=== PATIENT | female | born 1935 | race Caucasian/White ===

== ENCOUNTER → 2017-08-11 | Outpatient (CLI) | payer MEDICARE, OTHER | END | disposition home or self-care (01) | LOC: WOUND 10:00 | PROVIDERS: ATTEND Internal Medicine Infectious Disease | DX: I87.331 Chronic venous hypertension (idiopathic) with ulcer and inflammation of right lower extremity (principal); L97.212 Non-pressure chronic ulcer of right calf with fat layer exposed; I48.91 Unspecified atrial fibrillation; I73.9 Peripheral vascular disease, unspecified; Z86.718 Personal history of other venous thrombosis and embolism; Z86.711 Personal history of pulmonary embolism; Z95.0 Presence of cardiac pacemaker | CPT/HCPCS: 11042; G0463; WOU0463 ==

== ENCOUNTER → 2017-08-21 | Outpatient (CLI) | payer MEDICARE, OTHER | END | disposition home or self-care (01) | LOC: WOUND 13:13 | PROVIDERS: ATTEND Family Medicine | DX: I87.331 Chronic venous hypertension (idiopathic) with ulcer and inflammation of right lower extremity (principal); L97.212 Non-pressure chronic ulcer of right calf with fat layer exposed; I73.9 Peripheral vascular disease, unspecified; I48.91 Unspecified atrial fibrillation; Z86.718 Personal history of other venous thrombosis and embolism; Z86.711 Personal history of pulmonary embolism; Z95.1 Presence of aortocoronary bypass graft; Z95.0 Presence of cardiac pacemaker; Z90.710 Acquired absence of both cervix and uterus | CPT/HCPCS: 29581 ==

== ENCOUNTER → 2017-08-25 | Outpatient (CLI) | payer MEDICARE, OTHER | END | disposition home or self-care (01) | LOC: WOUND 10:41 | PROVIDERS: ATTEND Nurse Practitioner Family | DX: I87.311 Chronic venous hypertension (idiopathic) with ulcer of right lower extremity (principal); L97.212 Non-pressure chronic ulcer of right calf with fat layer exposed; L57.0 Actinic keratosis; I73.9 Peripheral vascular disease, unspecified; I48.91 Unspecified atrial fibrillation; Z86.718 Personal history of other venous thrombosis and embolism; Z86.711 Personal history of pulmonary embolism; Z95.0 Presence of cardiac pacemaker; Z90.710 Acquired absence of both cervix and uterus; Z95.1 Presence of aortocoronary bypass graft | CPT/HCPCS: 97597 ==

== ENCOUNTER → 2017-09-03 | Outpatient (CLI) | payer MEDICARE, OTHER | END | disposition home or self-care (01) | LOC: WOUND 10:14 | PROVIDERS: ATTEND Podiatrist Foot & Ankle Surgery | DX: I87.331 Chronic venous hypertension (idiopathic) with ulcer and inflammation of right lower extremity (principal); L97.212 Non-pressure chronic ulcer of right calf with fat layer exposed; I48.91 Unspecified atrial fibrillation; I73.9 Peripheral vascular disease, unspecified; Z95.1 Presence of aortocoronary bypass graft; Z95.2 Presence of prosthetic heart valve; Z90.710 Acquired absence of both cervix and uterus; Z86.718 Personal history of other venous thrombosis and embolism; Z86.711 Personal history of pulmonary embolism; Z95.0 Presence of cardiac pacemaker | CPT/HCPCS: 11042 ==

== ENCOUNTER → 2017-09-10 | Outpatient (CLI) | payer MEDICARE, OTHER | END | disposition home or self-care (01) | LOC: WOUND 10:42 | PROVIDERS: ATTEND Podiatrist Foot & Ankle Surgery | DX: I87.331 Chronic venous hypertension (idiopathic) with ulcer and inflammation of right lower extremity (principal); L97.212 Non-pressure chronic ulcer of right calf with fat layer exposed; I48.91 Unspecified atrial fibrillation; I73.9 Peripheral vascular disease, unspecified; Z90.710 Acquired absence of both cervix and uterus; Z86.718 Personal history of other venous thrombosis and embolism; Z86.711 Personal history of pulmonary embolism; Z95.1 Presence of aortocoronary bypass graft; Z95.0 Presence of cardiac pacemaker; Z95.2 Presence of prosthetic heart valve | CPT/HCPCS: 15271; Q4159 ==

== ENCOUNTER → 2017-09-17 | Outpatient (CLI) | payer MEDICARE, OTHER | END | disposition home or self-care (01) | LOC: WOUND 09:58 | PROVIDERS: ATTEND Podiatrist Foot & Ankle Surgery | DX: I87.331 Chronic venous hypertension (idiopathic) with ulcer and inflammation of right lower extremity (principal); L97.212 Non-pressure chronic ulcer of right calf with fat layer exposed; I73.9 Peripheral vascular disease, unspecified; I48.91 Unspecified atrial fibrillation; Z86.718 Personal history of other venous thrombosis and embolism; Z86.711 Personal history of pulmonary embolism; Z95.0 Presence of cardiac pacemaker; Z95.1 Presence of aortocoronary bypass graft; Z95.2 Presence of prosthetic heart valve; Z90.710 Acquired absence of both cervix and uterus | CPT/HCPCS: 15271; Q4133 ==

== ENCOUNTER → 2017-09-24 | Outpatient (CLI) | payer MEDICARE, OTHER | END | disposition home or self-care (01) | LOC: WOUND 10:00 | PROVIDERS: ATTEND Podiatrist Foot & Ankle Surgery | DX: I87.331 Chronic venous hypertension (idiopathic) with ulcer and inflammation of right lower extremity (principal); L97.212 Non-pressure chronic ulcer of right calf with fat layer exposed; I48.91 Unspecified atrial fibrillation; I73.9 Peripheral vascular disease, unspecified; Z86.718 Personal history of other venous thrombosis and embolism; Z86.711 Personal history of pulmonary embolism; Z95.1 Presence of aortocoronary bypass graft; Z95.0 Presence of cardiac pacemaker; Z95.2 Presence of prosthetic heart valve; Z90.710 Acquired absence of both cervix and uterus | CPT/HCPCS: 15271; Q4159 ==

== ENCOUNTER → 2017-10-01 | Outpatient (CLI) | payer MEDICARE, OTHER | END | disposition home or self-care (01) | LOC: WOUND 10:30 | PROVIDERS: ATTEND Podiatrist Foot & Ankle Surgery | DX: I87.331 Chronic venous hypertension (idiopathic) with ulcer and inflammation of right lower extremity (principal); L97.212 Non-pressure chronic ulcer of right calf with fat layer exposed; I48.91 Unspecified atrial fibrillation; I73.9 Peripheral vascular disease, unspecified; Z86.718 Personal history of other venous thrombosis and embolism; Z86.711 Personal history of pulmonary embolism; Z95.1 Presence of aortocoronary bypass graft; Z95.0 Presence of cardiac pacemaker; Z95.2 Presence of prosthetic heart valve; Z90.710 Acquired absence of both cervix and uterus | CPT/HCPCS: 15271; Q4159 ==

== ENCOUNTER → 2017-10-08 | Outpatient (CLI) | payer MEDICARE, OTHER | END | disposition home or self-care (01) | LOC: WOUND 09:48 | PROVIDERS: ATTEND Podiatrist Foot & Ankle Surgery | DX: I87.331 Chronic venous hypertension (idiopathic) with ulcer and inflammation of right lower extremity (principal); L97.212 Non-pressure chronic ulcer of right calf with fat layer exposed; I48.91 Unspecified atrial fibrillation; I73.9 Peripheral vascular disease, unspecified; Z86.718 Personal history of other venous thrombosis and embolism; Z86.711 Personal history of pulmonary embolism; Z95.1 Presence of aortocoronary bypass graft; Z95.0 Presence of cardiac pacemaker; Z95.2 Presence of prosthetic heart valve; Z90.710 Acquired absence of both cervix and uterus | CPT/HCPCS: 15271; Q4159 ==

== ENCOUNTER → 2017-10-15 | Outpatient (CLI) | payer MEDICARE, OTHER | END | disposition home or self-care (01) | LOC: WOUND 10:20 | PROVIDERS: ATTEND Podiatrist Foot & Ankle Surgery | DX: I87.331 Chronic venous hypertension (idiopathic) with ulcer and inflammation of right lower extremity (principal); L97.212 Non-pressure chronic ulcer of right calf with fat layer exposed; I48.91 Unspecified atrial fibrillation; I73.9 Peripheral vascular disease, unspecified; Z86.718 Personal history of other venous thrombosis and embolism; Z86.711 Personal history of pulmonary embolism; Z95.1 Presence of aortocoronary bypass graft; Z95.0 Presence of cardiac pacemaker; Z95.2 Presence of prosthetic heart valve; Z90.710 Acquired absence of both cervix and uterus | CPT/HCPCS: 15271; Q4159 ==

== ENCOUNTER → 2017-10-22 | Outpatient (CLI) | payer MEDICARE, OTHER | END | disposition home or self-care (01) | LOC: WOUND 10:17 | PROVIDERS: ATTEND Podiatrist Foot & Ankle Surgery | DX: I87.331 Chronic venous hypertension (idiopathic) with ulcer and inflammation of right lower extremity (principal); L97.212 Non-pressure chronic ulcer of right calf with fat layer exposed; I73.9 Peripheral vascular disease, unspecified; I48.91 Unspecified atrial fibrillation; Z86.718 Personal history of other venous thrombosis and embolism; Z86.711 Personal history of pulmonary embolism; Z95.1 Presence of aortocoronary bypass graft; Z95.0 Presence of cardiac pacemaker; Z95.2 Presence of prosthetic heart valve; Z90.710 Acquired absence of both cervix and uterus | CPT/HCPCS: 15271; Q4159 ==

== ENCOUNTER → 2017-10-29 | Outpatient (CLI) | payer MEDICARE, OTHER | END | disposition home or self-care (01) | LOC: WOUND 10:15 | PROVIDERS: ATTEND Podiatrist Foot & Ankle Surgery | DX: I87.331 Chronic venous hypertension (idiopathic) with ulcer and inflammation of right lower extremity (principal); L97.212 Non-pressure chronic ulcer of right calf with fat layer exposed; I73.9 Peripheral vascular disease, unspecified; I48.91 Unspecified atrial fibrillation; Z86.718 Personal history of other venous thrombosis and embolism; Z86.711 Personal history of pulmonary embolism; Z95.1 Presence of aortocoronary bypass graft; Z95.0 Presence of cardiac pacemaker; Z95.2 Presence of prosthetic heart valve; Z90.710 Acquired absence of both cervix and uterus | CPT/HCPCS: 15271; Q4133 ==

== ENCOUNTER → 2017-11-05 | Outpatient (CLI) | payer MEDICARE, OTHER | END | disposition home or self-care (01) | LOC: WOUND 09:36 | PROVIDERS: ATTEND Podiatrist Foot & Ankle Surgery | DX: I87.331 Chronic venous hypertension (idiopathic) with ulcer and inflammation of right lower extremity (principal); L97.212 Non-pressure chronic ulcer of right calf with fat layer exposed; I48.91 Unspecified atrial fibrillation; I73.9 Peripheral vascular disease, unspecified; Z90.710 Acquired absence of both cervix and uterus; Z86.718 Personal history of other venous thrombosis and embolism; Z86.711 Personal history of pulmonary embolism; Z95.1 Presence of aortocoronary bypass graft; Z95.0 Presence of cardiac pacemaker; Z95.2 Presence of prosthetic heart valve | CPT/HCPCS: 15271; Q4133 ==

== ENCOUNTER → 2017-11-12 | Outpatient (CLI) | payer MEDICARE, OTHER | END | disposition home or self-care (01) | LOC: WOUND 10:16 | PROVIDERS: ATTEND Podiatrist Foot & Ankle Surgery | DX: I87.331 Chronic venous hypertension (idiopathic) with ulcer and inflammation of right lower extremity (principal); L97.212 Non-pressure chronic ulcer of right calf with fat layer exposed; I48.91 Unspecified atrial fibrillation; I73.9 Peripheral vascular disease, unspecified; Z86.718 Personal history of other venous thrombosis and embolism; Z86.711 Personal history of pulmonary embolism; Z95.0 Presence of cardiac pacemaker; Z95.2 Presence of prosthetic heart valve; Z90.710 Acquired absence of both cervix and uterus | CPT/HCPCS: 15271; Q4101 ==

== ENCOUNTER → 2017-11-19 | Outpatient (CLI) | payer MEDICARE, OTHER | END | disposition home or self-care (01) | LOC: WOUND 10:09 | PROVIDERS: ATTEND Podiatrist Foot & Ankle Surgery | DX: I87.331 Chronic venous hypertension (idiopathic) with ulcer and inflammation of right lower extremity (principal); L97.812 Non-pressure chronic ulcer of other part of right lower leg with fat layer exposed; I48.91 Unspecified atrial fibrillation; I73.89 Other specified peripheral vascular diseases; Z90.711 Acquired absence of uterus with remaining cervical stump; Z86.711 Personal history of pulmonary embolism; Z86.718 Personal history of other venous thrombosis and embolism; Z90.710 Acquired absence of both cervix and uterus; Z95.0 Presence of cardiac pacemaker; Z95.1 Presence of aortocoronary bypass graft; Z95.2 Presence of prosthetic heart valve | CPT/HCPCS: 11042; 11100; 97607 ==

== ENCOUNTER → 2017-11-23 | Outpatient (CLI) | payer MEDICARE, OTHER | END | disposition home or self-care (01) | LOC: WOUND 12:59 | PROVIDERS: ATTEND Internal Medicine | DX: I87.333 Chronic venous hypertension (idiopathic) with ulcer and inflammation of bilateral lower extremity (principal); L97.212 Non-pressure chronic ulcer of right calf with fat layer exposed; L97.821 Non-pressure chronic ulcer of other part of left lower leg limited to breakdown of skin; I48.91 Unspecified atrial fibrillation; E11.51 Type 2 diabetes mellitus with diabetic peripheral angiopathy without gangrene; Z86.718 Personal history of other venous thrombosis and embolism; Z86.711 Personal history of pulmonary embolism; Z95.0 Presence of cardiac pacemaker; Z90.710 Acquired absence of both cervix and uterus; Z95.1 Presence of aortocoronary bypass graft | CPT/HCPCS: 97607 ==

== ENCOUNTER → 2017-11-26 | Outpatient (CLI) | payer MEDICARE, OTHER | END | disposition home or self-care (01) | LOC: WOUND 10:12 | PROVIDERS: ATTEND Podiatrist Foot & Ankle Surgery | DX: I87.331 Chronic venous hypertension (idiopathic) with ulcer and inflammation of right lower extremity (principal); L97.212 Non-pressure chronic ulcer of right calf with fat layer exposed; I48.91 Unspecified atrial fibrillation; I73.9 Peripheral vascular disease, unspecified; Z86.718 Personal history of other venous thrombosis and embolism; Z86.711 Personal history of pulmonary embolism; Z95.0 Presence of cardiac pacemaker; Z95.2 Presence of prosthetic heart valve; Z95.1 Presence of aortocoronary bypass graft; Z90.710 Acquired absence of both cervix and uterus | CPT/HCPCS: 11042 ==

== ENCOUNTER → 2017-12-03 | Outpatient (CLI) | payer MEDICARE, OTHER | END | disposition home or self-care (01) | LOC: WOUND 09:52 | PROVIDERS: ATTEND Podiatrist Foot & Ankle Surgery | DX: I87.331 Chronic venous hypertension (idiopathic) with ulcer and inflammation of right lower extremity (principal); L97.212 Non-pressure chronic ulcer of right calf with fat layer exposed; I48.91 Unspecified atrial fibrillation; I73.89 Other specified peripheral vascular diseases; Z95.1 Presence of aortocoronary bypass graft; Z90.710 Acquired absence of both cervix and uterus; Z86.711 Personal history of pulmonary embolism; Z95.0 Presence of cardiac pacemaker; Z95.2 Presence of prosthetic heart valve; Z86.718 Personal history of other venous thrombosis and embolism | CPT/HCPCS: 11042; 87070; 87077; 87186; 87205 ==

== ENCOUNTER → 2017-12-10 | Outpatient (CLI) | payer MEDICARE, OTHER | END | disposition home or self-care (01) | LOC: WOUND 10:34 | PROVIDERS: ATTEND Podiatrist Foot & Ankle Surgery | DX: I87.311 Chronic venous hypertension (idiopathic) with ulcer of right lower extremity (principal); L97.212 Non-pressure chronic ulcer of right calf with fat layer exposed; I73.89 Other specified peripheral vascular diseases; I48.91 Unspecified atrial fibrillation; Z90.710 Acquired absence of both cervix and uterus; Z95.1 Presence of aortocoronary bypass graft; Z95.0 Presence of cardiac pacemaker; Z95.2 Presence of prosthetic heart valve; Z86.711 Personal history of pulmonary embolism | CPT/HCPCS: 11042; 87070; 87077; 87186; 87205 ==

== ENCOUNTER → 2017-12-17 | Outpatient (CLI) | payer MEDICARE, OTHER | END | disposition home or self-care (01) | LOC: WOUND 10:01 | PROVIDERS: ATTEND Podiatrist Foot & Ankle Surgery | DX: I87.331 Chronic venous hypertension (idiopathic) with ulcer and inflammation of right lower extremity (principal); L97.212 Non-pressure chronic ulcer of right calf with fat layer exposed; I48.91 Unspecified atrial fibrillation; Z95.0 Presence of cardiac pacemaker; Z95.1 Presence of aortocoronary bypass graft; Z95.2 Presence of prosthetic heart valve; Z90.710 Acquired absence of both cervix and uterus; Z86.711 Personal history of pulmonary embolism; Z86.718 Personal history of other venous thrombosis and embolism | CPT/HCPCS: 11043 ==

== ENCOUNTER → 2017-12-24 | Outpatient (CLI) | payer MEDICARE, OTHER | END | disposition home or self-care (01) | LOC: WOUND 10:15 | PROVIDERS: ATTEND Podiatrist Foot & Ankle Surgery | DX: I87.331 Chronic venous hypertension (idiopathic) with ulcer and inflammation of right lower extremity (principal); L97.212 Non-pressure chronic ulcer of right calf with fat layer exposed; I48.91 Unspecified atrial fibrillation; I73.9 Peripheral vascular disease, unspecified; Z86.711 Personal history of pulmonary embolism; Z86.718 Personal history of other venous thrombosis and embolism; Z90.710 Acquired absence of both cervix and uterus; Z95.1 Presence of aortocoronary bypass graft | CPT/HCPCS: 11042 ==

== ENCOUNTER → 2017-12-31 | Outpatient (CLI) | payer MEDICARE, OTHER | END | disposition home or self-care (01) | LOC: WOUND 09:57 | PROVIDERS: ATTEND Podiatrist Foot & Ankle Surgery | DX: I87.311 Chronic venous hypertension (idiopathic) with ulcer of right lower extremity (principal); L97.212 Non-pressure chronic ulcer of right calf with fat layer exposed; I73.9 Peripheral vascular disease, unspecified; I48.91 Unspecified atrial fibrillation; Z95.1 Presence of aortocoronary bypass graft; Z90.49 Acquired absence of other specified parts of digestive tract; Z86.718 Personal history of other venous thrombosis and embolism; Z86.711 Personal history of pulmonary embolism | CPT/HCPCS: 11042 ==

== ENCOUNTER → 2018-01-07 | Outpatient (CLI) | payer MEDICARE, OTHER | END | disposition home or self-care (01) | LOC: WOUND 10:03 | PROVIDERS: ATTEND Podiatrist Foot & Ankle Surgery | DX: I87.331 Chronic venous hypertension (idiopathic) with ulcer and inflammation of right lower extremity (principal); E11.622 Type 2 diabetes mellitus with other skin ulcer; L97.212 Non-pressure chronic ulcer of right calf with fat layer exposed; E11.51 Type 2 diabetes mellitus with diabetic peripheral angiopathy without gangrene; I48.91 Unspecified atrial fibrillation; Z86.718 Personal history of other venous thrombosis and embolism; Z86.711 Personal history of pulmonary embolism; Z95.0 Presence of cardiac pacemaker; Z90.49 Acquired absence of other specified parts of digestive tract; Z95.1 Presence of aortocoronary bypass graft; Z90.710 Acquired absence of both cervix and uterus; Z95.2 Presence of prosthetic heart valve | CPT/HCPCS: 15271; Q4132 ==

== ENCOUNTER → 2018-01-14 | Outpatient (CLI) | payer MEDICARE, OTHER | END | disposition home or self-care (01) | LOC: WOUND 10:00 | PROVIDERS: ATTEND Podiatrist Foot & Ankle Surgery | DX: I87.331 Chronic venous hypertension (idiopathic) with ulcer and inflammation of right lower extremity (principal); E11.622 Type 2 diabetes mellitus with other skin ulcer; L97.212 Non-pressure chronic ulcer of right calf with fat layer exposed; E11.51 Type 2 diabetes mellitus with diabetic peripheral angiopathy without gangrene; I48.91 Unspecified atrial fibrillation; Z86.718 Personal history of other venous thrombosis and embolism; Z86.711 Personal history of pulmonary embolism; Z95.0 Presence of cardiac pacemaker; Z90.49 Acquired absence of other specified parts of digestive tract; Z95.1 Presence of aortocoronary bypass graft; Z90.710 Acquired absence of both cervix and uterus; Z95.2 Presence of prosthetic heart valve | CPT/HCPCS: 15271; Q4132 ==

== ENCOUNTER → 2018-01-21 | Outpatient (CLI) | payer MEDICARE, OTHER | END | disposition home or self-care (01) | LOC: WOUND 10:19 | PROVIDERS: ATTEND Podiatrist Foot & Ankle Surgery | DX: E11.622 Type 2 diabetes mellitus with other skin ulcer (principal); I87.331 Chronic venous hypertension (idiopathic) with ulcer and inflammation of right lower extremity; L97.212 Non-pressure chronic ulcer of right calf with fat layer exposed; E11.51 Type 2 diabetes mellitus with diabetic peripheral angiopathy without gangrene; I48.91 Unspecified atrial fibrillation; I25.10 Atherosclerotic heart disease of native coronary artery without angina pectoris; Z90.710 Acquired absence of both cervix and uterus; Z90.49 Acquired absence of other specified parts of digestive tract; Z95.2 Presence of prosthetic heart valve; Z95.1 Presence of aortocoronary bypass graft; Z95.0 Presence of cardiac pacemaker; Z86.73 Personal history of transient ischemic attack (TIA), and cerebral infarction without residual deficits; Z86.711 Personal history of pulmonary embolism | CPT/HCPCS: 15271; Q4132 ==

== ENCOUNTER → 2018-01-28 | Outpatient (CLI) | payer MEDICARE, OTHER | END | disposition home or self-care (01) | LOC: WOUND 10:22 | PROVIDERS: ATTEND Podiatrist Foot & Ankle Surgery | DX: E11.622 Type 2 diabetes mellitus with other skin ulcer (principal); I87.331 Chronic venous hypertension (idiopathic) with ulcer and inflammation of right lower extremity; L97.212 Non-pressure chronic ulcer of right calf with fat layer exposed; E11.51 Type 2 diabetes mellitus with diabetic peripheral angiopathy without gangrene; I48.91 Unspecified atrial fibrillation; I25.10 Atherosclerotic heart disease of native coronary artery without angina pectoris; Z90.710 Acquired absence of both cervix and uterus; Z90.49 Acquired absence of other specified parts of digestive tract; Z95.2 Presence of prosthetic heart valve; Z95.1 Presence of aortocoronary bypass graft; Z95.0 Presence of cardiac pacemaker; Z86.73 Personal history of transient ischemic attack (TIA), and cerebral infarction without residual deficits; Z86.711 Personal history of pulmonary embolism; Z86.718 Personal history of other venous thrombosis and embolism | CPT/HCPCS: 15271; Q4132 ==

== ENCOUNTER → 2018-02-04 | Outpatient (CLI) | payer MEDICARE, OTHER | END | disposition home or self-care (01) | LOC: WOUND 10:42 | PROVIDERS: ATTEND Podiatrist Foot & Ankle Surgery | DX: I87.331 Chronic venous hypertension (idiopathic) with ulcer and inflammation of right lower extremity (principal); E11.622 Type 2 diabetes mellitus with other skin ulcer; L97.212 Non-pressure chronic ulcer of right calf with fat layer exposed; E11.51 Type 2 diabetes mellitus with diabetic peripheral angiopathy without gangrene; I48.91 Unspecified atrial fibrillation; I25.10 Atherosclerotic heart disease of native coronary artery without angina pectoris; Z86.718 Personal history of other venous thrombosis and embolism; Z86.711 Personal history of pulmonary embolism; Z95.0 Presence of cardiac pacemaker; Z90.49 Acquired absence of other specified parts of digestive tract; Z95.1 Presence of aortocoronary bypass graft; Z90.710 Acquired absence of both cervix and uterus; Z95.2 Presence of prosthetic heart valve; Z86.73 Personal history of transient ischemic attack (TIA), and cerebral infarction without residual deficits | CPT/HCPCS: 15271; Q4133 ==

== ENCOUNTER → 2018-02-04 | Outpatient (CLI) | payer MEDICARE, OTHER | END | disposition home or self-care (01) | LOC: CARD 08:53 | PROVIDERS: ATTEND Audiologist | DX: Z02.9 Encounter for administrative examinations, unspecified (principal) ==

== ENCOUNTER → 2018-02-11 | Outpatient (CLI) | payer MEDICARE, OTHER | END | disposition home or self-care (01) | LOC: WOUND 09:58 | PROVIDERS: ATTEND Podiatrist Foot & Ankle Surgery | DX: E11.622 Type 2 diabetes mellitus with other skin ulcer (principal); I87.331 Chronic venous hypertension (idiopathic) with ulcer and inflammation of right lower extremity; L97.212 Non-pressure chronic ulcer of right calf with fat layer exposed; E11.51 Type 2 diabetes mellitus with diabetic peripheral angiopathy without gangrene; I48.91 Unspecified atrial fibrillation; I25.10 Atherosclerotic heart disease of native coronary artery without angina pectoris; Z95.0 Presence of cardiac pacemaker; Z86.711 Personal history of pulmonary embolism; Z86.718 Personal history of other venous thrombosis and embolism; Z90.710 Acquired absence of both cervix and uterus; Z90.49 Acquired absence of other specified parts of digestive tract; Z86.73 Personal history of transient ischemic attack (TIA), and cerebral infarction without residual deficits | CPT/HCPCS: 15271; Q4133 ==

== ENCOUNTER → 2018-02-18 | Outpatient (CLI) | payer MEDICARE, OTHER | END | disposition home or self-care (01) | LOC: WOUND 10:00 | PROVIDERS: ATTEND Podiatrist Foot & Ankle Surgery | DX: E11.622 Type 2 diabetes mellitus with other skin ulcer (principal); I87.311 Chronic venous hypertension (idiopathic) with ulcer of right lower extremity; L97.212 Non-pressure chronic ulcer of right calf with fat layer exposed; E11.51 Type 2 diabetes mellitus with diabetic peripheral angiopathy without gangrene; I48.91 Unspecified atrial fibrillation; I25.10 Atherosclerotic heart disease of native coronary artery without angina pectoris; Z86.718 Personal history of other venous thrombosis and embolism; Z86.711 Personal history of pulmonary embolism; Z90.710 Acquired absence of both cervix and uterus; Z90.49 Acquired absence of other specified parts of digestive tract; Z86.73 Personal history of transient ischemic attack (TIA), and cerebral infarction without residual deficits | CPT/HCPCS: 15271; Q4133 ==

== ENCOUNTER → 2018-02-25 | Outpatient (CLI) | payer MEDICARE, OTHER | END | disposition home or self-care (01) | LOC: WOUND 10:48 | PROVIDERS: ATTEND Podiatrist Foot & Ankle Surgery | DX: E11.622 Type 2 diabetes mellitus with other skin ulcer (principal); I87.331 Chronic venous hypertension (idiopathic) with ulcer and inflammation of right lower extremity; L97.212 Non-pressure chronic ulcer of right calf with fat layer exposed; E11.51 Type 2 diabetes mellitus with diabetic peripheral angiopathy without gangrene; I48.91 Unspecified atrial fibrillation; I25.10 Atherosclerotic heart disease of native coronary artery without angina pectoris; Z90.710 Acquired absence of both cervix and uterus; Z90.49 Acquired absence of other specified parts of digestive tract; Z86.718 Personal history of other venous thrombosis and embolism; Z86.711 Personal history of pulmonary embolism | CPT/HCPCS: 15271; Q4132 ==

== ENCOUNTER → 2018-03-04 | Outpatient (CLI) | payer MEDICARE, OTHER | END | disposition home or self-care (01) | LOC: WOUND 09:55 | PROVIDERS: ATTEND Podiatrist Foot & Ankle Surgery | DX: E11.622 Type 2 diabetes mellitus with other skin ulcer (principal); I87.311 Chronic venous hypertension (idiopathic) with ulcer of right lower extremity; L97.212 Non-pressure chronic ulcer of right calf with fat layer exposed; I48.91 Unspecified atrial fibrillation; E11.51 Type 2 diabetes mellitus with diabetic peripheral angiopathy without gangrene; I25.10 Atherosclerotic heart disease of native coronary artery without angina pectoris; Z86.711 Personal history of pulmonary embolism; Z86.718 Personal history of other venous thrombosis and embolism; Z90.710 Acquired absence of both cervix and uterus; Z90.49 Acquired absence of other specified parts of digestive tract; Z86.73 Personal history of transient ischemic attack (TIA), and cerebral infarction without residual deficits | CPT/HCPCS: 15271; Q4133 ==

== ENCOUNTER 2018-03-10 10:01 | Outpatient (CLI) | payer MEDICARE, OTHER | END 2018-03-22 11:23 | disposition home or self-care (01) | LOC: WOUND 10:01 | PROVIDERS: ATTEND Internal Medicine | DX: E11.622 Type 2 diabetes mellitus with other skin ulcer (principal); I87.311 Chronic venous hypertension (idiopathic) with ulcer of right lower extremity; L97.212 Non-pressure chronic ulcer of right calf with fat layer exposed; E11.51 Type 2 diabetes mellitus with diabetic peripheral angiopathy without gangrene; I48.91 Unspecified atrial fibrillation; I25.10 Atherosclerotic heart disease of native coronary artery without angina pectoris; Z86.711 Personal history of pulmonary embolism; Z90.710 Acquired absence of both cervix and uterus; Z90.49 Acquired absence of other specified parts of digestive tract; Z86.718 Personal history of other venous thrombosis and embolism; Z86.73 Personal history of transient ischemic attack (TIA), and cerebral infarction without residual deficits | CPT/HCPCS: G0463 ==

== ENCOUNTER → 2018-03-18 | Outpatient (CLI) | payer MEDICARE, OTHER | END | disposition home or self-care (01) | LOC: WOUND 09:58 | PROVIDERS: ATTEND Podiatrist Foot & Ankle Surgery | DX: E11.622 Type 2 diabetes mellitus with other skin ulcer (principal); I87.331 Chronic venous hypertension (idiopathic) with ulcer and inflammation of right lower extremity; L97.212 Non-pressure chronic ulcer of right calf with fat layer exposed; E11.51 Type 2 diabetes mellitus with diabetic peripheral angiopathy without gangrene; I48.91 Unspecified atrial fibrillation; I25.10 Atherosclerotic heart disease of native coronary artery without angina pectoris; Z90.710 Acquired absence of both cervix and uterus; Z90.49 Acquired absence of other specified parts of digestive tract; Z86.718 Personal history of other venous thrombosis and embolism; Z86.73 Personal history of transient ischemic attack (TIA), and cerebral infarction without residual deficits | CPT/HCPCS: 15271; Q4101 ==

== ENCOUNTER → 2018-04-01 | Outpatient (CLI) | payer MEDICARE, OTHER | END | disposition home or self-care (01) | LOC: WOUND 09:55 | PROVIDERS: ATTEND Podiatrist Foot & Ankle Surgery | DX: E11.622 Type 2 diabetes mellitus with other skin ulcer (principal); I87.331 Chronic venous hypertension (idiopathic) with ulcer and inflammation of right lower extremity; L97.212 Non-pressure chronic ulcer of right calf with fat layer exposed; E11.51 Type 2 diabetes mellitus with diabetic peripheral angiopathy without gangrene; I48.91 Unspecified atrial fibrillation; I25.10 Atherosclerotic heart disease of native coronary artery without angina pectoris; Z90.710 Acquired absence of both cervix and uterus; Z90.49 Acquired absence of other specified parts of digestive tract; Z86.718 Personal history of other venous thrombosis and embolism; Z86.73 Personal history of transient ischemic attack (TIA), and cerebral infarction without residual deficits; Z95.1 Presence of aortocoronary bypass graft; Z86.711 Personal history of pulmonary embolism; Z95.0 Presence of cardiac pacemaker | CPT/HCPCS: 87070; 87077; 87205; G0463 ==

== ENCOUNTER → 2018-04-22 | Outpatient (CLI) | payer MEDICARE, OTHER | END | disposition home or self-care (01) | LOC: WOUND 09:57 | PROVIDERS: ATTEND Podiatrist Foot & Ankle Surgery | DX: I70.238 Atherosclerosis of native arteries of right leg with ulceration of other part of lower leg (principal); I87.331 Chronic venous hypertension (idiopathic) with ulcer and inflammation of right lower extremity; E11.622 Type 2 diabetes mellitus with other skin ulcer; L97.212 Non-pressure chronic ulcer of right calf with fat layer exposed; E11.51 Type 2 diabetes mellitus with diabetic peripheral angiopathy without gangrene; I48.91 Unspecified atrial fibrillation; I25.10 Atherosclerotic heart disease of native coronary artery without angina pectoris; Z90.710 Acquired absence of both cervix and uterus; Z90.49 Acquired absence of other specified parts of digestive tract; Z86.718 Personal history of other venous thrombosis and embolism; Z86.73 Personal history of transient ischemic attack (TIA), and cerebral infarction without residual deficits; Z95.1 Presence of aortocoronary bypass graft; Z86.711 Personal history of pulmonary embolism; Z95.0 Presence of cardiac pacemaker | CPT/HCPCS: 11042 ==

== ENCOUNTER 2018-05-13 13:00 | Outpatient (CLI) | payer MEDICARE, OTHER | END 2018-05-13 23:59 | disposition home or self-care (01) | LOC: WOUND 13:00 | PROVIDERS: ATTEND Podiatrist Foot & Ankle Surgery | DX: E11.622 Type 2 diabetes mellitus with other skin ulcer (principal); I87.331 Chronic venous hypertension (idiopathic) with ulcer and inflammation of right lower extremity; L97.212 Non-pressure chronic ulcer of right calf with fat layer exposed; E11.51 Type 2 diabetes mellitus with diabetic peripheral angiopathy without gangrene; I48.91 Unspecified atrial fibrillation; I25.10 Atherosclerotic heart disease of native coronary artery without angina pectoris; Z86.718 Personal history of other venous thrombosis and embolism; Z86.711 Personal history of pulmonary embolism; Z90.710 Acquired absence of both cervix and uterus; Z90.49 Acquired absence of other specified parts of digestive tract; Z86.73 Personal history of transient ischemic attack (TIA), and cerebral infarction without residual deficits | CPT/HCPCS: 11042 ==

== ENCOUNTER → 2018-05-20 | Outpatient (CLI) | payer MEDICARE, OTHER | END | disposition home or self-care (01) | LOC: WOUND 13:23 | PROVIDERS: ATTEND Podiatrist Foot & Ankle Surgery | DX: E11.622 Type 2 diabetes mellitus with other skin ulcer (principal); L97.812 Non-pressure chronic ulcer of other part of right lower leg with fat layer exposed; I87.332 Chronic venous hypertension (idiopathic) with ulcer and inflammation of left lower extremity; L97.212 Non-pressure chronic ulcer of right calf with fat layer exposed; E11.51 Type 2 diabetes mellitus with diabetic peripheral angiopathy without gangrene; I48.91 Unspecified atrial fibrillation; I25.10 Atherosclerotic heart disease of native coronary artery without angina pectoris; Z86.711 Personal history of pulmonary embolism; Z90.710 Acquired absence of both cervix and uterus; Z86.718 Personal history of other venous thrombosis and embolism; Z90.49 Acquired absence of other specified parts of digestive tract; Z86.73 Personal history of transient ischemic attack (TIA), and cerebral infarction without residual deficits | CPT/HCPCS: 11042 ==

== ENCOUNTER → 2018-05-27 | Outpatient (CLI) | payer MEDICARE, OTHER | END | disposition home or self-care (01) | LOC: WOUND 09:58 | PROVIDERS: ATTEND Podiatrist Foot & Ankle Surgery | DX: E11.622 Type 2 diabetes mellitus with other skin ulcer (principal); I87.331 Chronic venous hypertension (idiopathic) with ulcer and inflammation of right lower extremity; L97.212 Non-pressure chronic ulcer of right calf with fat layer exposed; E11.51 Type 2 diabetes mellitus with diabetic peripheral angiopathy without gangrene; I48.91 Unspecified atrial fibrillation; I25.10 Atherosclerotic heart disease of native coronary artery without angina pectoris; Z86.711 Personal history of pulmonary embolism; Z90.710 Acquired absence of both cervix and uterus; Z90.49 Acquired absence of other specified parts of digestive tract; Z86.718 Personal history of other venous thrombosis and embolism; Z86.73 Personal history of transient ischemic attack (TIA), and cerebral infarction without residual deficits | CPT/HCPCS: 11042 ==

== ENCOUNTER → 2018-06-17 | Outpatient (CLI) | payer MEDICARE, OTHER | END | disposition home or self-care (01) | LOC: WOUND 14:08 | PROVIDERS: ATTEND Podiatrist Foot & Ankle Surgery | DX: E11.622 Type 2 diabetes mellitus with other skin ulcer (principal); I87.331 Chronic venous hypertension (idiopathic) with ulcer and inflammation of right lower extremity; L97.212 Non-pressure chronic ulcer of right calf with fat layer exposed; E11.51 Type 2 diabetes mellitus with diabetic peripheral angiopathy without gangrene; I48.91 Unspecified atrial fibrillation; I25.10 Atherosclerotic heart disease of native coronary artery without angina pectoris; Z86.711 Personal history of pulmonary embolism; Z90.710 Acquired absence of both cervix and uterus; Z86.718 Personal history of other venous thrombosis and embolism; Z90.49 Acquired absence of other specified parts of digestive tract; Z86.73 Personal history of transient ischemic attack (TIA), and cerebral infarction without residual deficits | CPT/HCPCS: 11042 ==

== ENCOUNTER → 2018-06-24 | Outpatient (CLI) | payer MEDICARE, OTHER | END | disposition home or self-care (01) | LOC: WOUND 13:06 | PROVIDERS: ATTEND Podiatrist Foot & Ankle Surgery | DX: I87.331 Chronic venous hypertension (idiopathic) with ulcer and inflammation of right lower extremity (principal); E11.622 Type 2 diabetes mellitus with other skin ulcer; L97.212 Non-pressure chronic ulcer of right calf with fat layer exposed; E11.51 Type 2 diabetes mellitus with diabetic peripheral angiopathy without gangrene; I48.91 Unspecified atrial fibrillation; I25.10 Atherosclerotic heart disease of native coronary artery without angina pectoris; Z86.711 Personal history of pulmonary embolism; Z90.710 Acquired absence of both cervix and uterus; Z86.718 Personal history of other venous thrombosis and embolism; Z90.49 Acquired absence of other specified parts of digestive tract; Z86.73 Personal history of transient ischemic attack (TIA), and cerebral infarction without residual deficits | CPT/HCPCS: 11042 ==

== ENCOUNTER → 2018-07-01 | Outpatient (CLI) | payer MEDICARE, OTHER | END | disposition home or self-care (01) | LOC: WOUND 13:37 | PROVIDERS: ATTEND Podiatrist Foot & Ankle Surgery | DX: E11.622 Type 2 diabetes mellitus with other skin ulcer (principal); I87.332 Chronic venous hypertension (idiopathic) with ulcer and inflammation of left lower extremity; L97.212 Non-pressure chronic ulcer of right calf with fat layer exposed; E11.51 Type 2 diabetes mellitus with diabetic peripheral angiopathy without gangrene; I48.91 Unspecified atrial fibrillation; I25.10 Atherosclerotic heart disease of native coronary artery without angina pectoris; Z95.0 Presence of cardiac pacemaker; Z86.711 Personal history of pulmonary embolism; Z90.710 Acquired absence of both cervix and uterus; Z86.718 Personal history of other venous thrombosis and embolism; Z90.49 Acquired absence of other specified parts of digestive tract; Z86.73 Personal history of transient ischemic attack (TIA), and cerebral infarction without residual deficits | CPT/HCPCS: 11042 ==

== ENCOUNTER → 2018-07-08 | Outpatient (CLI) | payer MEDICARE, OTHER | END | disposition home or self-care (01) | LOC: WOUND 09:00 | PROVIDERS: ATTEND Podiatrist Foot & Ankle Surgery | DX: E11.622 Type 2 diabetes mellitus with other skin ulcer (principal); I87.332 Chronic venous hypertension (idiopathic) with ulcer and inflammation of left lower extremity; I70.238 Atherosclerosis of native arteries of right leg with ulceration of other part of lower leg; L97.811 Non-pressure chronic ulcer of other part of right lower leg limited to breakdown of skin; E11.51 Type 2 diabetes mellitus with diabetic peripheral angiopathy without gangrene; I48.91 Unspecified atrial fibrillation; I25.10 Atherosclerotic heart disease of native coronary artery without angina pectoris; Z95.0 Presence of cardiac pacemaker; Z86.711 Personal history of pulmonary embolism; Z90.710 Acquired absence of both cervix and uterus; Z86.718 Personal history of other venous thrombosis and embolism; Z90.49 Acquired absence of other specified parts of digestive tract; Z86.73 Personal history of transient ischemic attack (TIA), and cerebral infarction without residual deficits | CPT/HCPCS: 97597 ==

== ENCOUNTER → 2018-07-29 | Outpatient (CLI) | payer MEDICARE, OTHER | END | disposition home or self-care (01) | LOC: WOUND 11:00 | PROVIDERS: ATTEND Podiatrist Foot & Ankle Surgery | DX: E11.622 Type 2 diabetes mellitus with other skin ulcer (principal); I87.331 Chronic venous hypertension (idiopathic) with ulcer and inflammation of right lower extremity; I70.232 Atherosclerosis of native arteries of right leg with ulceration of calf; L97.212 Non-pressure chronic ulcer of right calf with fat layer exposed; L03.115 Cellulitis of right lower limb; E11.51 Type 2 diabetes mellitus with diabetic peripheral angiopathy without gangrene; I48.91 Unspecified atrial fibrillation; I25.10 Atherosclerotic heart disease of native coronary artery without angina pectoris; Z95.0 Presence of cardiac pacemaker; Z86.711 Personal history of pulmonary embolism; Z90.710 Acquired absence of both cervix and uterus; Z86.718 Personal history of other venous thrombosis and embolism; Z90.49 Acquired absence of other specified parts of digestive tract; Z86.73 Personal history of transient ischemic attack (TIA), and cerebral infarction without residual deficits | CPT/HCPCS: 11042 ==

== ENCOUNTER → 2018-08-12 | Outpatient (CLI) | payer MEDICARE, OTHER | END | disposition home or self-care (01) | LOC: WOUND 13:19 | PROVIDERS: ATTEND Podiatrist Foot & Ankle Surgery | DX: E11.622 Type 2 diabetes mellitus with other skin ulcer (principal); I70.232 Atherosclerosis of native arteries of right leg with ulceration of calf; L97.212 Non-pressure chronic ulcer of right calf with fat layer exposed; L03.115 Cellulitis of right lower limb; E11.51 Type 2 diabetes mellitus with diabetic peripheral angiopathy without gangrene; I48.91 Unspecified atrial fibrillation; I25.10 Atherosclerotic heart disease of native coronary artery without angina pectoris; Z95.0 Presence of cardiac pacemaker; Z90.710 Acquired absence of both cervix and uterus; Z86.711 Personal history of pulmonary embolism; Z90.49 Acquired absence of other specified parts of digestive tract; Z86.718 Personal history of other venous thrombosis and embolism; Z86.73 Personal history of transient ischemic attack (TIA), and cerebral infarction without residual deficits | CPT/HCPCS: 15271; Q4101 ==

== ENCOUNTER 2018-08-19 10:24 | Outpatient (CLI) | payer MEDICARE, OTHER | END 2018-08-19 23:59 | disposition home or self-care (01) | LOC: WOUND 10:24 | PROVIDERS: ATTEND Podiatrist Foot & Ankle Surgery | DX: E11.622 Type 2 diabetes mellitus with other skin ulcer (principal); I70.232 Atherosclerosis of native arteries of right leg with ulceration of calf; L97.212 Non-pressure chronic ulcer of right calf with fat layer exposed; L03.115 Cellulitis of right lower limb; E11.51 Type 2 diabetes mellitus with diabetic peripheral angiopathy without gangrene; I48.91 Unspecified atrial fibrillation; I25.10 Atherosclerotic heart disease of native coronary artery without angina pectoris; Z95.0 Presence of cardiac pacemaker; Z90.710 Acquired absence of both cervix and uterus; Z86.711 Personal history of pulmonary embolism; Z90.49 Acquired absence of other specified parts of digestive tract; Z86.718 Personal history of other venous thrombosis and embolism; Z86.73 Personal history of transient ischemic attack (TIA), and cerebral infarction without residual deficits | CPT/HCPCS: G0463 ==

== ENCOUNTER → 2018-08-26 | Outpatient (CLI) | payer MEDICARE, OTHER | END | disposition home or self-care (01) | LOC: WOUND 09:00 | PROVIDERS: ATTEND Podiatrist Foot & Ankle Surgery | DX: E11.622 Type 2 diabetes mellitus with other skin ulcer (principal); I87.331 Chronic venous hypertension (idiopathic) with ulcer and inflammation of right lower extremity; I70.232 Atherosclerosis of native arteries of right leg with ulceration of calf; L97.212 Non-pressure chronic ulcer of right calf with fat layer exposed; L03.115 Cellulitis of right lower limb; E11.51 Type 2 diabetes mellitus with diabetic peripheral angiopathy without gangrene; I48.91 Unspecified atrial fibrillation; I25.10 Atherosclerotic heart disease of native coronary artery without angina pectoris; Z95.0 Presence of cardiac pacemaker; Z86.711 Personal history of pulmonary embolism; Z90.710 Acquired absence of both cervix and uterus; Z86.718 Personal history of other venous thrombosis and embolism; Z90.49 Acquired absence of other specified parts of digestive tract; Z86.73 Personal history of transient ischemic attack (TIA), and cerebral infarction without residual deficits | CPT/HCPCS: 15271; Q4101 ==

== ENCOUNTER → 2018-09-02 | Outpatient (CLI) | payer MEDICARE, OTHER | END | disposition home or self-care (01) | LOC: WOUND 09:44 | PROVIDERS: ATTEND Podiatrist Foot & Ankle Surgery | DX: E11.622 Type 2 diabetes mellitus with other skin ulcer (principal); I87.331 Chronic venous hypertension (idiopathic) with ulcer and inflammation of right lower extremity; I70.232 Atherosclerosis of native arteries of right leg with ulceration of calf; L97.212 Non-pressure chronic ulcer of right calf with fat layer exposed; E11.51 Type 2 diabetes mellitus with diabetic peripheral angiopathy without gangrene; L03.115 Cellulitis of right lower limb; I48.91 Unspecified atrial fibrillation; I25.10 Atherosclerotic heart disease of native coronary artery without angina pectoris; Z95.0 Presence of cardiac pacemaker; Z90.710 Acquired absence of both cervix and uterus; Z86.711 Personal history of pulmonary embolism; Z86.718 Personal history of other venous thrombosis and embolism; Z90.49 Acquired absence of other specified parts of digestive tract; Z86.73 Personal history of transient ischemic attack (TIA), and cerebral infarction without residual deficits | CPT/HCPCS: 15271; Q4101 ==

== ENCOUNTER → 2018-09-16 | Outpatient (CLI) | payer MEDICARE, OTHER | END | disposition home or self-care (01) | LOC: WOUND 10:51 | PROVIDERS: ATTEND Podiatrist Foot & Ankle Surgery | DX: E11.622 Type 2 diabetes mellitus with other skin ulcer (principal); I87.312 Chronic venous hypertension (idiopathic) with ulcer of left lower extremity; I70.232 Atherosclerosis of native arteries of right leg with ulceration of calf; L97.212 Non-pressure chronic ulcer of right calf with fat layer exposed; L03.115 Cellulitis of right lower limb; E11.51 Type 2 diabetes mellitus with diabetic peripheral angiopathy without gangrene; L84 Corns and callosities; I48.91 Unspecified atrial fibrillation; I25.10 Atherosclerotic heart disease of native coronary artery without angina pectoris; Z95.0 Presence of cardiac pacemaker; Z86.711 Personal history of pulmonary embolism; Z90.710 Acquired absence of both cervix and uterus; Z90.49 Acquired absence of other specified parts of digestive tract; Z86.718 Personal history of other venous thrombosis and embolism; Z86.73 Personal history of transient ischemic attack (TIA), and cerebral infarction without residual deficits | CPT/HCPCS: 97597 ==

== ENCOUNTER → 2018-09-30 | Outpatient (CLI) | payer MEDICARE, OTHER | END | disposition home or self-care (01) | LOC: WOUND 10:51 | PROVIDERS: ATTEND Podiatrist Foot & Ankle Surgery | DX: E11.622 Type 2 diabetes mellitus with other skin ulcer (principal); I87.312 Chronic venous hypertension (idiopathic) with ulcer of left lower extremity; I70.232 Atherosclerosis of native arteries of right leg with ulceration of calf; L97.212 Non-pressure chronic ulcer of right calf with fat layer exposed; L03.115 Cellulitis of right lower limb; E11.51 Type 2 diabetes mellitus with diabetic peripheral angiopathy without gangrene; L84 Corns and callosities; I48.91 Unspecified atrial fibrillation; I25.10 Atherosclerotic heart disease of native coronary artery without angina pectoris; Z95.0 Presence of cardiac pacemaker; Z86.711 Personal history of pulmonary embolism; Z90.710 Acquired absence of both cervix and uterus; Z90.49 Acquired absence of other specified parts of digestive tract; Z86.718 Personal history of other venous thrombosis and embolism; Z86.73 Personal history of transient ischemic attack (TIA), and cerebral infarction without residual deficits | CPT/HCPCS: 97597 ==

== ENCOUNTER 2018-10-28 09:47 | Outpatient (CLI) | payer MEDICARE, OTHER | END 2018-10-28 23:59 | disposition home or self-care (01) | LOC: WOUND 09:47 | PROVIDERS: ATTEND Podiatrist Foot & Ankle Surgery | DX: E11.622 Type 2 diabetes mellitus with other skin ulcer (principal); I87.311 Chronic venous hypertension (idiopathic) with ulcer of right lower extremity; I70.232 Atherosclerosis of native arteries of right leg with ulceration of calf; L97.212 Non-pressure chronic ulcer of right calf with fat layer exposed; L03.115 Cellulitis of right lower limb; E11.51 Type 2 diabetes mellitus with diabetic peripheral angiopathy without gangrene; L84 Corns and callosities; I48.91 Unspecified atrial fibrillation; I25.10 Atherosclerotic heart disease of native coronary artery without angina pectoris; Z95.0 Presence of cardiac pacemaker; Z86.711 Personal history of pulmonary embolism; Z90.710 Acquired absence of both cervix and uterus; Z90.49 Acquired absence of other specified parts of digestive tract; Z86.718 Personal history of other venous thrombosis and embolism; Z86.73 Personal history of transient ischemic attack (TIA), and cerebral infarction without residual deficits | CPT/HCPCS: 11042 ==

== ENCOUNTER 2018-11-04 10:30 | Outpatient (CLI) | payer MEDICARE, OTHER | END 2018-11-04 23:59 | disposition home or self-care (01) | LOC: WOUND 10:30 | PROVIDERS: ATTEND Podiatrist Foot & Ankle Surgery | DX: E11.622 Type 2 diabetes mellitus with other skin ulcer (principal); I87.311 Chronic venous hypertension (idiopathic) with ulcer of right lower extremity; I70.232 Atherosclerosis of native arteries of right leg with ulceration of calf; L97.212 Non-pressure chronic ulcer of right calf with fat layer exposed; L03.115 Cellulitis of right lower limb; E11.51 Type 2 diabetes mellitus with diabetic peripheral angiopathy without gangrene; L84 Corns and callosities; I48.91 Unspecified atrial fibrillation; I25.10 Atherosclerotic heart disease of native coronary artery without angina pectoris; Z95.0 Presence of cardiac pacemaker; Z86.711 Personal history of pulmonary embolism; Z90.710 Acquired absence of both cervix and uterus; Z90.49 Acquired absence of other specified parts of digestive tract; Z86.718 Personal history of other venous thrombosis and embolism; Z86.73 Personal history of transient ischemic attack (TIA), and cerebral infarction without residual deficits | CPT/HCPCS: 11042 ==

== ENCOUNTER 2018-11-18 10:09 | Outpatient (CLI) | payer MEDICARE, OTHER | END 2018-11-18 23:59 | disposition home or self-care (01) | LOC: WOUND 10:09 | PROVIDERS: ATTEND Podiatrist Foot & Ankle Surgery | DX: I87.311 Chronic venous hypertension (idiopathic) with ulcer of right lower extremity (principal); E11.622 Type 2 diabetes mellitus with other skin ulcer; I70.232 Atherosclerosis of native arteries of right leg with ulceration of calf; L97.212 Non-pressure chronic ulcer of right calf with fat layer exposed; L03.115 Cellulitis of right lower limb; E11.51 Type 2 diabetes mellitus with diabetic peripheral angiopathy without gangrene; L84 Corns and callosities; I48.91 Unspecified atrial fibrillation; I25.10 Atherosclerotic heart disease of native coronary artery without angina pectoris; Z95.0 Presence of cardiac pacemaker; Z86.711 Personal history of pulmonary embolism; Z90.710 Acquired absence of both cervix and uterus; Z90.49 Acquired absence of other specified parts of digestive tract; Z86.718 Personal history of other venous thrombosis and embolism; Z86.73 Personal history of transient ischemic attack (TIA), and cerebral infarction without residual deficits | CPT/HCPCS: 11042 ==

== ENCOUNTER 2018-11-25 09:42 | Outpatient (CLI) | payer MEDICARE, OTHER | END 2018-11-25 23:59 | disposition home or self-care (01) | LOC: WOUND 09:42 | PROVIDERS: ATTEND Podiatrist Foot & Ankle Surgery | DX: I87.311 Chronic venous hypertension (idiopathic) with ulcer of right lower extremity (principal); E11.622 Type 2 diabetes mellitus with other skin ulcer; I70.232 Atherosclerosis of native arteries of right leg with ulceration of calf; L97.212 Non-pressure chronic ulcer of right calf with fat layer exposed; L03.115 Cellulitis of right lower limb; E11.51 Type 2 diabetes mellitus with diabetic peripheral angiopathy without gangrene; L84 Corns and callosities; I48.91 Unspecified atrial fibrillation; I25.10 Atherosclerotic heart disease of native coronary artery without angina pectoris; Z95.0 Presence of cardiac pacemaker; Z86.711 Personal history of pulmonary embolism; Z90.710 Acquired absence of both cervix and uterus; Z90.49 Acquired absence of other specified parts of digestive tract; Z86.718 Personal history of other venous thrombosis and embolism; Z86.73 Personal history of transient ischemic attack (TIA), and cerebral infarction without residual deficits | CPT/HCPCS: 11042 ==

== ENCOUNTER 2019-02-10 10:13 | Outpatient (CLI) | payer MEDICARE, OTHER | END 2019-02-10 23:59 | disposition home or self-care (01) | LOC: WOUND 10:13 | PROVIDERS: ATTEND Podiatrist Foot & Ankle Surgery | DX: I70.232 Atherosclerosis of native arteries of right leg with ulceration of calf (principal); E11.622 Type 2 diabetes mellitus with other skin ulcer; I87.331 Chronic venous hypertension (idiopathic) with ulcer and inflammation of right lower extremity; L97.212 Non-pressure chronic ulcer of right calf with fat layer exposed; E11.51 Type 2 diabetes mellitus with diabetic peripheral angiopathy without gangrene; L84 Corns and callosities; I48.91 Unspecified atrial fibrillation; I25.10 Atherosclerotic heart disease of native coronary artery without angina pectoris; I50.9 Heart failure, unspecified; Z95.0 Presence of cardiac pacemaker; Z86.711 Personal history of pulmonary embolism; Z90.710 Acquired absence of both cervix and uterus; Z90.49 Acquired absence of other specified parts of digestive tract; Z86.718 Personal history of other venous thrombosis and embolism; Z86.73 Personal history of transient ischemic attack (TIA), and cerebral infarction without residual deficits; Z88.1 Allergy status to other antibiotic agents; Z95.1 Presence of aortocoronary bypass graft; Z88.5 Allergy status to narcotic agent; Z88.0 Allergy status to penicillin | CPT/HCPCS: 97597 ==

== ENCOUNTER → 2019-02-24 | Outpatient (CLI) | payer MEDICARE, OTHER | END | disposition home or self-care (01) | LOC: WOUND 10:34 | PROVIDERS: ATTEND Podiatrist Foot & Ankle Surgery | DX: I70.232 Atherosclerosis of native arteries of right leg with ulceration of calf (principal); E11.622 Type 2 diabetes mellitus with other skin ulcer; I87.331 Chronic venous hypertension (idiopathic) with ulcer and inflammation of right lower extremity; L97.212 Non-pressure chronic ulcer of right calf with fat layer exposed; E11.51 Type 2 diabetes mellitus with diabetic peripheral angiopathy without gangrene; L84 Corns and callosities; I48.91 Unspecified atrial fibrillation; I25.10 Atherosclerotic heart disease of native coronary artery without angina pectoris; I50.9 Heart failure, unspecified; Z95.0 Presence of cardiac pacemaker; Z86.711 Personal history of pulmonary embolism; Z90.710 Acquired absence of both cervix and uterus; Z90.49 Acquired absence of other specified parts of digestive tract; Z86.718 Personal history of other venous thrombosis and embolism; Z86.73 Personal history of transient ischemic attack (TIA), and cerebral infarction without residual deficits; Z88.1 Allergy status to other antibiotic agents; Z95.1 Presence of aortocoronary bypass graft; Z88.5 Allergy status to narcotic agent | CPT/HCPCS: 97597 ==

== ENCOUNTER → 2019-03-10 | Outpatient (CLI) | payer MEDICARE, OTHER | END | disposition home or self-care (01) | LOC: WOUND 13:22 | PROVIDERS: ATTEND Podiatrist Foot & Ankle Surgery | DX: I70.232 Atherosclerosis of native arteries of right leg with ulceration of calf (principal); E11.622 Type 2 diabetes mellitus with other skin ulcer; I87.331 Chronic venous hypertension (idiopathic) with ulcer and inflammation of right lower extremity; L97.212 Non-pressure chronic ulcer of right calf with fat layer exposed; E11.51 Type 2 diabetes mellitus with diabetic peripheral angiopathy without gangrene; L84 Corns and callosities; I48.91 Unspecified atrial fibrillation; I25.10 Atherosclerotic heart disease of native coronary artery without angina pectoris; I50.9 Heart failure, unspecified; Z95.0 Presence of cardiac pacemaker; Z86.711 Personal history of pulmonary embolism; Z90.710 Acquired absence of both cervix and uterus; Z90.49 Acquired absence of other specified parts of digestive tract; Z86.718 Personal history of other venous thrombosis and embolism; Z86.73 Personal history of transient ischemic attack (TIA), and cerebral infarction without residual deficits; Z88.1 Allergy status to other antibiotic agents; Z95.1 Presence of aortocoronary bypass graft; Z88.5 Allergy status to narcotic agent; Z88.0 Allergy status to penicillin | CPT/HCPCS: 97597 ==